=== PATIENT | male | born 1950 | race African-American/Black ===

== ENCOUNTER 2019-01-28 20:49 | Inpatient (IN) | payer MEDICARE ==
[~2019-01-28] VITALS: Ht 182.9 cm; Wt 82.0 kg
[2019-01-28] MEDS ORDERED: FURO40TA5 PO (21:16)
[2019-01-28] MEDS ORDERED: CARV12.580 PO (21:16)
[2019-01-28] MEDS ORDERED: CALC667C PO (21:16)
[2019-01-28] MEDS ORDERED: FOLI1TAB15 PO (21:16)
[2019-01-28] MEDS ORDERED: OMEP-50 PO (21:16)
[2019-01-28] MEDS ORDERED: ATOR40TA71 PO (21:16)
[2019-01-28] MEDS ORDERED: NIFE60TA81 PO (21:16)
[2019-01-28] MEDS ORDERED: LOSA25TA44 PO (21:16)
[2019-01-28 21:45] LABS: BASOPHILS % (AUTO) 0.5 % (0.0-2.0); EOSINOPHILS % (AUTO) 1.1 % (1.0-6.0); LYMPHOCYTES # (AUTO) 0.6 K/uL (1.0-4.8); LYMPHOCYTES % (AUTO) 6.7 % (22.0-44.0); MEAN CORPUSCULAR HEMOGLOBIN 32.6 pg (26.0-34.0); MEAN CORPUSCULAR HGB CONC 33.6 G/dL (31.0-37.0); MEAN CORPUSCULAR VOLUME 97 fL (80-100); MONOCYTES # (AUTO) 0.6 K/uL (0.1-1.0); MONOCYTES % (AUTO) 7.3 % (2.0-9.0); NEUTROPHILS # (AUTO) 7.1 K/uL (1.8-7.7); NEUTROPHILS % (AUTO) 84.4 % (40.0-70.0); PLATELET COUNT (AUTO) 223 K/uL (150-450); RED BLOOD CELL COUNT(AUTO) 1.22 MIL/uL (4.50-5.90); RED CELL DISTRIBUTION WIDTH 16.2 % (11.5-14.5)
[2019-01-28 21:54] LABS: HEMATOCRIT 11.8 % (41-53)
[2019-01-28 22:07] LABS: ALBUMIN 2.1 g/dL (3.4-5.0); BILIRUBIN,TOTAL 0.4 mg/dL (0.1-1.0); CREATININE 4.55 mg/dL (0.60-1.30); POTASSIUM 4.5 mmol/L (3.5-5.1); TOTAL PROTEIN, SERUM 6.1 g/dL (6.4-8.2)
[2019-01-28 22:12] LABS: CALCIUM, TOTAL 11.6 mg/dL (8.8-10.5)
[2019-01-28 23:55] VITALS: BP 143/62
[2019-01-29] VITALS (13 sets, daily range): BP systolic 132–177; BP diastolic 66–90
[2019-01-29 04:33] LABS: BASOPHILS % (AUTO) 0.4 % (0.0-2.0); EOSINOPHILS % (AUTO) 1.4 % (1.0-6.0); LYMPHOCYTES # (AUTO) 0.4 K/uL (1.0-4.8); LYMPHOCYTES % (AUTO) 4.7 % (22.0-44.0); MEAN CORPUSCULAR HEMOGLOBIN 32.3 pg (26.0-34.0); MEAN CORPUSCULAR HGB CONC 34.4 G/dL (31.0-37.0); MEAN CORPUSCULAR VOLUME 94 fL (80-100); MONOCYTES # (AUTO) 0.7 K/uL (0.1-1.0); MONOCYTES % (AUTO) 8.8 % (2.0-9.0); NEUTROPHILS # (AUTO) 7.1 K/uL (1.8-7.7); NEUTROPHILS % (AUTO) 84.7 % (40.0-70.0); PLATELET COUNT (AUTO) 187 K/uL (150-450); RED CELL DISTRIBUTION WIDTH 15.5 % (11.5-14.5)
[2019-01-29 04:39] LABS: CALCIUM, TOTAL 11.5 mg/dL (8.8-10.5); CREATININE 4.8 mg/dL (0.60-1.30); POTASSIUM 4.7 mmol/L (3.5-5.1)
[2019-01-29 04:41] LABS: HEMATOCRIT 16.9 % (41-53); HEMOGLOBIN 5.8 g/dL (13.5-17.5)
[2019-01-29] MEDS ORDERED: ACETAMINOPHEN 325 MG TABLET PO PRN (08:45)
[2019-01-29] MEDS ORDERED: BISACODYL 10 MG RECTAL RECTAL SUPPOSITORY PR PRN (08:45)
[2019-01-29] MEDS ORDERED: HEPARIN SODIUM,PORCINE 5,000 UNITS/ML VIAL SQ SCH (09:00)
[2019-01-29] MEDS ORDERED: DEXTROSE 50%-WATER 25 GM/50 ML SYRINGE IVP PRN (09:00)
[2019-01-29] MEDS ORDERED: ASPIRIN 81 MG CHEWABLE TABLET PO SCH (09:00)
[2019-01-29 10:41] LABS: BASOPHILS % (AUTO) 0.7 % (0.0-2.0); EOSINOPHILS % (AUTO) 0.9 % (1.0-6.0); LYMPHOCYTES # (AUTO) 0.5 K/uL (1.0-4.8); LYMPHOCYTES % (AUTO) 4.9 % (22.0-44.0); MEAN CORPUSCULAR HEMOGLOBIN 31.6 pg (26.0-34.0); MEAN CORPUSCULAR HGB CONC 33.5 G/dL (31.0-37.0); MEAN CORPUSCULAR VOLUME 94 fL (80-100); MONOCYTES # (AUTO) 0.7 K/uL (0.1-1.0); MONOCYTES % (AUTO) 7.5 % (2.0-9.0); NEUTROPHILS # (AUTO) 8.4 K/uL (1.8-7.7); PLATELET COUNT (AUTO) 197 K/uL (150-450); RED BLOOD CELL COUNT(AUTO) 1.91 MIL/uL (4.50-5.90); RED CELL DISTRIBUTION WIDTH 15.6 % (11.5-14.5)
[2019-01-29] MEDS: FAMOTIDINE 20 MG TABLET PO SCH (11:16)
[2019-01-29] MEDS: VITAMIN B COMP/VIT C/FOLIC ACID CAPSULE PO SCH (11:17)
[2019-01-29] MEDS: DOCUSATE SODIUM 100 MG CAPSULE PO SCH ×2 (11:17→21:19)
[2019-01-29] MEDS ORDERED: LIDOCAINE/PF 1% 2 ML VIAL INJ ONE (12:00)
[2019-01-29 13:00] LABS: GLUCOMETER DEV NAME(LOC) 4E.2; GLUCOSE,POINT OF CARE 138 MG/DL (70-110)
[2019-01-29] MEDS ORDERED: SODIUM CHLORIDE 0.9% 1,000 ML IV ONE (14:53)
[2019-01-29] MEDS ORDERED: VANCOMYCIN HCL 1 GM/D5% WATER 200 ML IV ONE (17:00)
[2019-01-29] MEDS ORDERED: SODIUM CHLORIDE 0.9% 500 ML IV ONE (20:36)
[2019-01-29] MEDS: INSULIN LISPRO 100 UNITS/ML SQ PRN (22:43)
[2019-01-29 23:40] LABS: GLUCOMETER DEV NAME(LOC) 4E.2; GLUCOSE,POINT OF CARE 143 MG/DL (70-110)
[2019-01-30 05:02] VITALS: BP 164/81
[2019-01-30 05:09] VITALS: BP 153/77
[2019-01-30 06:16] LABS: BASOPHILS % (AUTO) 0.3 % (0.0-2.0); EOSINOPHILS % (AUTO) 1.2 % (1.0-6.0); HEMATOCRIT 21.9 % (41-53); HEMOGLOBIN 7.3 g/dL (13.5-17.5); LYMPHOCYTES # (AUTO) 0.4 K/uL (1.0-4.8); MEAN CORPUSCULAR HEMOGLOBIN 31.2 pg (26.0-34.0); MEAN CORPUSCULAR HGB CONC 33.5 G/dL (31.0-37.0); MEAN CORPUSCULAR VOLUME 93 fL (80-100); MONOCYTES # (AUTO) 0.7 K/uL (0.1-1.0); MONOCYTES % (AUTO) 7.2 % (2.0-9.0); NEUTROPHILS # (AUTO) 8.3 K/uL (1.8-7.7); PLATELET COUNT (AUTO) 166 K/uL (150-450); RED BLOOD CELL COUNT(AUTO) 2.35 MIL/uL (4.50-5.90); RED CELL DISTRIBUTION WIDTH 15.3 % (11.5-14.5)
[2019-01-30 06:44] LABS: CREATININE 4.1 mg/dL (0.60-1.30); NEUTROPHILS % (AUTO) 87.3 % (40.0-70.0); POTASSIUM 4.4 mmol/L (3.5-5.1); VANCOMYCIN,RANDOM 27.3 mcg/mL (25.0-50.0)
[2019-01-30 06:51] LABS: GLUCOMETER DEV NAME(LOC) 4E.2; GLUCOSE,POINT OF CARE 73 MG/DL (70-110)
[2019-01-30] MEDS: DOCUSATE SODIUM 100 MG CAPSULE PO SCH ×2 (07:59→20:04)
[2019-01-30] MEDS: FAMOTIDINE 20 MG TABLET PO SCH (08:00)
[2019-01-30] MEDS ORDERED: VANCOMYCIN HCL 1 GM/D5% WATER 200 ML IV PRN (08:00)
[2019-01-30] MEDS: VITAMIN B COMP/VIT C/FOLIC ACID CAPSULE PO SCH (08:00)
[2019-01-30 08:05] VITALS: BP 149/76
[2019-01-30] MEDS ORDERED: DENOSUMAB SQ ONE (09:00)
[2019-01-30 11:55] VITALS: BP 151/84
[2019-01-30] MEDS ORDERED: SODIUM CHLORIDE 0.9% 100 ML ONE (12:24)
[2019-01-30] MEDS ORDERED: IOVERSOL 320 MG/ML 100 ML VIAL ONE (12:24)
[2019-01-30 14:06] LABS: GLUCOMETER DEV NAME(LOC) 4E.2; GLUCOSE,POINT OF CARE 124 MG/DL (70-110)
[2019-01-30] MEDS: INSULIN LISPRO 100 UNITS/ML SQ PRN (20:11)
[2019-01-30 20:12] VITALS: BP 159/86
[2019-01-30 20:56] LABS: GLUCOMETER DEV NAME(LOC) 4E.2; GLUCOSE,POINT OF CARE 155 MG/DL (70-110)
[2019-01-30 20:56] LABS: GLUCOMETER DEV NAME(LOC) 4E.2; GLUCOSE,POINT OF CARE 128 MG/DL (70-110)
[2019-01-30 23:15] VITALS: BP 139/58
[2019-01-31 03:57] VITALS: BP 148/73
[2019-01-31 06:40] LABS: GLUCOMETER DEV NAME(LOC) 4E.2; GLUCOSE,POINT OF CARE 99 MG/DL (70-110)
[2019-01-31 07:25] VITALS: BP 161/79
[2019-01-31] MEDS: DOCUSATE SODIUM 100 MG CAPSULE PO SCH ×2 (08:31→20:15)
[2019-01-31] MEDS: FAMOTIDINE 20 MG TABLET PO SCH (08:31)
[2019-01-31] MEDS: VITAMIN B COMP/VIT C/FOLIC ACID CAPSULE PO SCH (08:31)
[2019-01-31] MEDS ORDERED: SODIUM CHLORIDE 0.9% 2,000 ML IV ONE (09:41)
[2019-01-31 15:20] VITALS: BP 138/59
[2019-01-31] MEDS: ATORVASTATIN CALCIUM 40 MG TABLET PO SCH (15:20)
[2019-01-31] MEDS: CALCIUM ACETATE 667 MG CAPSULE PO SCH (17:36)
[2019-01-31] MEDS: HYDROCODONE/ACETAMINOPHEN 5-325 MG TABLET PO PRN (17:37)
[2019-01-31] MEDS: INSULIN LISPRO 100 UNITS/ML SQ PRN (17:42)
[2019-01-31 19:45] VITALS: BP 175/99
[2019-01-31 20:05] LABS: GLUCOMETER DEV NAME(LOC) 4E.2; GLUCOSE,POINT OF CARE 141 MG/DL (70-110)
[2019-01-31] MEDS: CARVEDILOL 12.5 MG TABLET PO SCH (20:15)
[2019-01-31 21:31] LABS: GLUCOMETER DEV NAME(LOC) 4E.2; GLUCOSE,POINT OF CARE 111 MG/DL (70-110)
[2019-01-31 23:40] VITALS: BP 175/82
[2019-02-01] VITALS (15 sets, daily range): BP systolic 140–169; BP diastolic 58–86
[2019-02-01] MEDS ORDERED: ONDANSETRON HCL 4 MG/2 ML VIAL IVP PRN (03:50)
[2019-02-01 06:43] LABS: BASOPHILS % (AUTO) 0.4 % (0.0-2.0); EOSINOPHILS % (AUTO) 2.9 % (1.0-6.0); LYMPHOCYTES # (AUTO) 0.3 K/uL (1.0-4.8); MEAN CORPUSCULAR HEMOGLOBIN 32.1 pg (26.0-34.0); MEAN CORPUSCULAR VOLUME 94 fL (80-100); MONOCYTES # (AUTO) 0.7 K/uL (0.1-1.0); NEUTROPHILS # (AUTO) 7.4 K/uL (1.8-7.7); NEUTROPHILS % (AUTO) 84.7 % (40.0-70.0); PLATELET COUNT (AUTO) 141 K/uL (150-450); RED BLOOD CELL COUNT(AUTO) 2.05 MIL/uL (4.50-5.90); RED CELL DISTRIBUTION WIDTH 15.1 % (11.5-14.5)
[2019-02-01 06:44] LABS: CALCIUM, TOTAL 9.9 mg/dL (8.8-10.5); CREATININE 3.84 mg/dL (0.60-1.30); POTASSIUM 4.1 mmol/L (3.5-5.1)
[2019-02-01 06:50] LABS: HEMOGLOBIN 6.6 g/dL (13.5-17.5)
[2019-02-01 06:51] LABS: HEMATOCRIT 19.4 % (41-53)
[2019-02-01] MEDS: ASPIRIN 81 MG CHEWABLE TABLET PO SCH (07:52)
[2019-02-01] MEDS: ATORVASTATIN CALCIUM 40 MG TABLET PO SCH (07:52)
[2019-02-01] MEDS: VITAMIN B COMP/VIT C/FOLIC ACID CAPSULE PO SCH (07:52)
[2019-02-01] MEDS: CALCIUM ACETATE 667 MG CAPSULE PO SCH ×3 (07:52→17:13)
[2019-02-01] MEDS: CARVEDILOL 12.5 MG TABLET PO SCH ×2 (07:53→20:00)
[2019-02-01] MEDS: DOCUSATE SODIUM 100 MG CAPSULE PO SCH ×2 (07:53→20:00)
[2019-02-01] MEDS: HYDROCODONE/ACETAMINOPHEN 5-325 MG TABLET PO PRN ×3 (07:53→20:00)
[2019-02-01] MEDS: FAMOTIDINE 20 MG TABLET PO SCH (07:53)
[2019-02-01] MEDS ORDERED: VANCOMYCIN HCL 1 GM/D5% WATER 200 ML IV ONE (10:00)
[2019-02-01 11:51] LABS: GLUCOMETER DEV NAME(LOC) 4E.2; GLUCOSE,POINT OF CARE 136 MG/DL (70-110)
[2019-02-01 15:05] LABS: HEMATOCRIT 22.9 % (41-53); HEMOGLOBIN 7.7 g/dL (13.5-17.5)
[2019-02-01] MEDS: INSULIN LISPRO 100 UNITS/ML SQ PRN (17:13)
[2019-02-01 17:36] LABS: GLUCOMETER DEV NAME(LOC) 4E.2; GLUCOSE,POINT OF CARE 156 MG/DL (70-110)
[2019-02-02] VITALS (13 sets, daily range): BP systolic 145–181; BP diastolic 62–89
[2019-02-02 00:11] LABS: GLUCOMETER DEV NAME(LOC) 4E.2; GLUCOSE,POINT OF CARE 99 MG/DL (70-110)
[2019-02-02] MEDS: HYDROCODONE/ACETAMINOPHEN 5-325 MG TABLET PO PRN ×3 (01:46→17:55)
[2019-02-02 05:38] LABS: ALBUMIN 1.7 g/dL (3.4-5.0); BILIRUBIN,TOTAL 0.6 mg/dL (0.1-1.0); CALCIUM, TOTAL 9.9 mg/dL (8.8-10.5); CREATININE 4.95 mg/dL (0.60-1.30); POTASSIUM 4.4 mmol/L (3.5-5.1); TOTAL PROTEIN, SERUM 5.3 g/dL (6.4-8.2)
[2019-02-02 06:15] LABS: BASOPHILS % (AUTO) 0.4 % (0.0-2.0); EOSINOPHILS % (AUTO) 2.9 % (1.0-6.0); LYMPHOCYTES # (AUTO) 0.4 K/uL (1.0-4.8); LYMPHOCYTES % (AUTO) 4.4 % (22.0-44.0); MEAN CORPUSCULAR HEMOGLOBIN 30.9 pg (26.0-34.0); MEAN CORPUSCULAR HGB CONC 33.1 G/dL (31.0-37.0); MEAN CORPUSCULAR VOLUME 93 fL (80-100); MONOCYTES # (AUTO) 0.8 K/uL (0.1-1.0); MONOCYTES % (AUTO) 8.3 % (2.0-9.0); NEUTROPHILS # (AUTO) 7.6 K/uL (1.8-7.7); PLATELET COUNT (AUTO) 139 K/uL (150-450); RED BLOOD CELL COUNT(AUTO) 2.19 MIL/uL (4.50-5.90); RED CELL DISTRIBUTION WIDTH 15.4 % (11.5-14.5)
[2019-02-02 06:30] LABS: HEMATOCRIT 20.4 % (41-53); HEMOGLOBIN 6.8 g/dL (13.5-17.5)
[2019-02-02 06:31] LABS: GLUCOMETER DEV NAME(LOC) 4E.2; GLUCOSE,POINT OF CARE 110 MG/DL (70-110)
[2019-02-02] MEDS: CARVEDILOL 12.5 MG TABLET PO SCH ×2 (07:51→19:39)
[2019-02-02] MEDS: CALCIUM ACETATE 667 MG CAPSULE PO SCH ×3 (07:51→17:55)
[2019-02-02] MEDS: VITAMIN B COMP/VIT C/FOLIC ACID CAPSULE PO SCH (07:51)
[2019-02-02] MEDS: ATORVASTATIN CALCIUM 40 MG TABLET PO SCH (07:51)
[2019-02-02] MEDS: FAMOTIDINE 20 MG TABLET PO SCH (07:51)
[2019-02-02] MEDS: ASPIRIN 81 MG CHEWABLE TABLET PO SCH (07:51)
[2019-02-02] MEDS: DOCUSATE SODIUM 100 MG CAPSULE PO SCH ×2 (07:52→19:39)
[2019-02-02] MEDS ORDERED: VANCOMYCIN HCL 1 GM/D5% WATER 200 ML IV PRN (10:45)
[2019-02-02 11:36] LABS: GLUCOMETER DEV NAME(LOC) 4E.2; GLUCOSE,POINT OF CARE 134 MG/DL (70-110)
[2019-02-02] MEDS: SOD FERRIC GLUC COMPLX/SUCROSE 125 MG in SODIUM CHLORIDE 0.9% 100 ML IV SCH (12:12)
[2019-02-02 12:23] LABS: HEMATOCRIT 24.7 % (41-53); HEMOGLOBIN 8.3 g/dL (13.5-17.5)
[2019-02-02 17:31] LABS: GLUCOMETER DEV NAME(LOC) 4E.2; GLUCOSE,POINT OF CARE 129 MG/DL (70-110)
[2019-02-02 20:35] LABS: GLUCOMETER DEV NAME(LOC) 4E.2; GLUCOSE,POINT OF CARE 129 MG/DL (70-110)
[2019-02-03 05:14] VITALS: BP 160/76
[2019-02-03 05:35] LABS: GLUCOMETER DEV NAME(LOC) 4E.2; GLUCOSE,POINT OF CARE 115 MG/DL (70-110)
[2019-02-03 05:53] LABS: BASOPHILS % (AUTO) 0.3 % (0.0-2.0); EOSINOPHILS % (AUTO) 2.8 % (1.0-6.0); HEMATOCRIT 22.2 % (41-53); HEMOGLOBIN 7.4 g/dL (13.5-17.5); LYMPHOCYTES # (AUTO) 0.3 K/uL (1.0-4.8); LYMPHOCYTES % (AUTO) 3.1 % (22.0-44.0); MEAN CORPUSCULAR HEMOGLOBIN 31.6 pg (26.0-34.0); MEAN CORPUSCULAR HGB CONC 33.5 G/dL (31.0-37.0); MEAN CORPUSCULAR VOLUME 94 fL (80-100); MONOCYTES # (AUTO) 0.7 K/uL (0.1-1.0); MONOCYTES % (AUTO) 7.6 % (2.0-9.0); NEUTROPHILS # (AUTO) 8.3 K/uL (1.8-7.7); PLATELET COUNT (AUTO) 121 K/uL (150-450); RED BLOOD CELL COUNT(AUTO) 2.36 MIL/uL (4.50-5.90); RED CELL DISTRIBUTION WIDTH 15.1 % (11.5-14.5)
[2019-02-03 05:56] LABS: NEUTROPHILS % (AUTO) 86.2 % (40.0-70.0)
[2019-02-03] MEDS: CALCIUM ACETATE 667 MG CAPSULE PO SCH ×3 (08:02→17:56)
[2019-02-03] MEDS: FAMOTIDINE 20 MG TABLET PO SCH (08:03)
[2019-02-03] MEDS: ATORVASTATIN CALCIUM 40 MG TABLET PO SCH (08:03)
[2019-02-03] MEDS: ASPIRIN 81 MG CHEWABLE TABLET PO SCH (08:03)
[2019-02-03] MEDS: VITAMIN B COMP/VIT C/FOLIC ACID CAPSULE PO SCH (08:03)
[2019-02-03] MEDS: DOCUSATE SODIUM 100 MG CAPSULE PO SCH ×3 (08:03→21:00)
[2019-02-03 08:18] VITALS: BP 170/85
[2019-02-03] MEDS: CARVEDILOL 12.5 MG TABLET PO SCH ×2 (08:52→20:19)
[2019-02-03] MEDS ORDERED: SODIUM CHLORIDE 0.9% 2,000 ML IV ONE (10:39)
[2019-02-03 12:20] LABS: GLUCOMETER DEV NAME(LOC) 4E.2; GLUCOSE,POINT OF CARE 105 MG/DL (70-110)
[2019-02-03] MEDS: INSULIN LISPRO 100 UNITS/ML SQ PRN ×2 (13:28→17:55)
[2019-02-03 15:31] VITALS: BP 155/87
[2019-02-03] MEDS: SOD FERRIC GLUC COMPLX/SUCROSE 125 MG in SODIUM CHLORIDE 0.9% 100 ML IV SCH (16:27)
[2019-02-03] MEDS ORDERED: LIDOCAINE/PF 1% 2 ML VIAL IM ONE (17:24)
[2019-02-03 19:15] VITALS: BP 181/79
[2019-02-03 19:45] LABS: GLUCOMETER DEV NAME(LOC) 4E.2; GLUCOSE,POINT OF CARE 134 MG/DL (70-110)
[2019-02-03 21:10] LABS: GLUCOMETER DEV NAME(LOC) 4E.2; GLUCOSE,POINT OF CARE 135 MG/DL (70-110)
[2019-02-03 23:30] VITALS: BP 158/78
[2019-02-04 04:00] VITALS: BP 152/80
[2019-02-04 05:40] LABS: GLUCOMETER DEV NAME(LOC) 4E.2; GLUCOSE,POINT OF CARE 102 MG/DL (70-110)
[2019-02-04 07:25] VITALS: BP 135/70
[2019-02-04] MEDS: CALCIUM ACETATE 667 MG CAPSULE PO SCH ×3 (08:00→17:58)
[2019-02-04] MEDS: CARVEDILOL 12.5 MG TABLET PO SCH ×3 (09:00→23:42)
[2019-02-04] MEDS: DOCUSATE SODIUM 100 MG CAPSULE PO SCH ×2 (09:00→23:42)
[2019-02-04] MEDS: SOD FERRIC GLUC COMPLX/SUCROSE 125 MG in SODIUM CHLORIDE 0.9% 100 ML IV SCH (10:18)
[2019-02-04 11:21] VITALS: BP 152/75
[2019-02-04] MEDS ORDERED: SODIUM CHLORIDE 0.9% 1,000 ML IV ONE (11:33)
[2019-02-04 15:23] LABS: INR 1.2 (0.9-1.1); PROTHROMBIN TIME 12.3 SEC (9.4-11.6)
[2019-02-04 15:24] LABS: % IRON SATURATION 102.6 % (30-44)
[2019-02-04 15:55] VITALS: BP 161/107
[2019-02-04] MEDS: VITAMIN B COMP/VIT C/FOLIC ACID CAPSULE PO SCH (16:01)
[2019-02-04] MEDS: ASPIRIN 81 MG CHEWABLE TABLET PO SCH (16:01)
[2019-02-04] MEDS: NIFEdipine 30 MG ER TABLET PO SCH (16:01)
[2019-02-04] MEDS: ATORVASTATIN CALCIUM 40 MG TABLET PO SCH (16:01)
[2019-02-04] MEDS: FAMOTIDINE 20 MG TABLET PO SCH (16:01)
[2019-02-04 18:25] VITALS: BP 171/88
[2019-02-04] MEDS ORDERED: CloNIDine HCL 0.1 MG TABLET PO ONE (18:45)
[2019-02-04 19:05] LABS: GLUCOMETER DEV NAME(LOC) 4E.2; GLUCOSE,POINT OF CARE 70 MG/DL (70-110)
[2019-02-04 19:05] LABS: GLUCOMETER DEV NAME(LOC) 4E.2; GLUCOSE,POINT OF CARE 105 MG/DL (70-110)
[2019-02-04 19:41] VITALS: BP 164/76
[2019-02-04] MEDS: HYDROCODONE/ACETAMINOPHEN 5-325 MG TABLET PO PRN (23:42)
[2019-02-05] VITALS (14 sets, daily range): BP systolic 110–152; BP diastolic 48–82
[2019-02-05] LABS: GLUCOMETER DEV NAME(LOC) 4E.2; GLUCOSE,POINT OF CARE 138 MG/DL (70-110)
[2019-02-05 05:29] LABS: BASOPHILS % (AUTO) 0.5 % (0.0-2.0); EOSINOPHILS % (AUTO) 2.5 % (1.0-6.0); HEMATOCRIT 21.8 % (41-53); HEMOGLOBIN 7.2 g/dL (13.5-17.5); LYMPHOCYTES # (AUTO) 0.4 K/uL (1.0-4.8); LYMPHOCYTES % (AUTO) 4.4 % (22.0-44.0); MEAN CORPUSCULAR HGB CONC 33.1 G/dL (31.0-37.0); MEAN CORPUSCULAR VOLUME 94 fL (80-100); MONOCYTES # (AUTO) 0.8 K/uL (0.1-1.0); NEUTROPHILS # (AUTO) 7.9 K/uL (1.8-7.7); NEUTROPHILS % (AUTO) 83.6 % (40.0-70.0); PLATELET COUNT (AUTO) 140 K/uL (150-450); RED BLOOD CELL COUNT(AUTO) 2.33 MIL/uL (4.50-5.90); RED CELL DISTRIBUTION WIDTH 14.8 % (11.5-14.5)
[2019-02-05] MEDS ORDERED: PROPOFOL 1% 20 ML VIAL IVP ONE (05:42)
[2019-02-05 05:52] LABS: CALCIUM, TOTAL 9.4 mg/dL (8.8-10.5); CREATININE 5.62 mg/dL (0.60-1.30); POTASSIUM 4.6 mmol/L (3.5-5.1)
[2019-02-05] MEDS: INSULIN LISPRO 100 UNITS/ML SQ PRN ×2 (06:04→18:17)
[2019-02-05 06:16] LABS: GLUCOMETER DEV NAME(LOC) 4E.2; GLUCOSE,POINT OF CARE 145 MG/DL (70-110)
[2019-02-05] MEDS: CALCIUM ACETATE 667 MG CAPSULE PO SCH ×3 (08:00→18:13)
[2019-02-05] MEDS ORDERED: SODIUM CHLORIDE 0.9% 2,000 ML IV ONE (08:26)
[2019-02-05] MEDS ORDERED: VANCOMYCIN HCL 1 GM/D5% WATER 200 ML IV ONE (09:00)
[2019-02-05] MEDS: DOCUSATE SODIUM 100 MG CAPSULE PO SCH ×2 (09:00→20:15)
[2019-02-05] MEDS: CARVEDILOL 12.5 MG TABLET PO SCH ×2 (09:00→20:14)
[2019-02-05] MEDS: ATORVASTATIN CALCIUM 40 MG TABLET PO SCH (12:38)
[2019-02-05] MEDS: FAMOTIDINE 20 MG TABLET PO SCH (12:38)
[2019-02-05] MEDS: NIFEdipine 30 MG ER TABLET PO SCH (12:38)
[2019-02-05] MEDS: VITAMIN B COMP/VIT C/FOLIC ACID CAPSULE PO SCH (12:38)
[2019-02-05] MEDS: ASPIRIN 81 MG CHEWABLE TABLET PO SCH (12:39)
[2019-02-05] MEDS ORDERED: PEG 3350/NA SULF,BICARB,CL/KCL 4000 ML SOLUTION PO ONE (13:00)
[2019-02-05] MEDS ORDERED: SODIUM CHLORIDE 0.9% 1,000 ML IV ONE (14:59)
[2019-02-05] MEDS: SOD FERRIC GLUC COMPLX/SUCROSE 125 MG in SODIUM CHLORIDE 0.9% 100 ML IV SCH (15:12)
[2019-02-06 04:40] VITALS: BP 137/74
[2019-02-06 05:58] LABS: BASOPHILS % (AUTO) 0.3 % (0.0-2.0); EOSINOPHILS % (AUTO) 2.2 % (1.0-6.0); HEMATOCRIT 23.1 % (41-53); LYMPHOCYTES # (AUTO) 0.4 K/uL (1.0-4.8); LYMPHOCYTES % (AUTO) 4.7 % (22.0-44.0); MEAN CORPUSCULAR HEMOGLOBIN 31.8 pg (26.0-34.0); MEAN CORPUSCULAR HGB CONC 34.4 G/dL (31.0-37.0); MEAN CORPUSCULAR VOLUME 93 fL (80-100); MONOCYTES # (AUTO) 0.8 K/uL (0.1-1.0); MONOCYTES % (AUTO) 9.2 % (2.0-9.0); NEUTROPHILS # (AUTO) 7.7 K/uL (1.8-7.7); NEUTROPHILS % (AUTO) 83.6 % (40.0-70.0); PLATELET COUNT (AUTO) 136 K/uL (150-450); RED CELL DISTRIBUTION WIDTH 14.8 % (11.5-14.5)
[2019-02-06 06:07] LABS: CALCIUM, TOTAL 8.9 mg/dL (8.8-10.5); CREATININE 4.01 mg/dL (0.60-1.30); POTASSIUM 4.1 mmol/L (3.5-5.1)
[2019-02-06] MEDS: INSULIN LISPRO 100 UNITS/ML SQ PRN ×2 (06:28→17:16)
[2019-02-06 08:07] VITALS: BP 135/74
[2019-02-06] MEDS: VITAMIN B COMP/VIT C/FOLIC ACID CAPSULE PO SCH (08:11)
[2019-02-06] MEDS: ASPIRIN 81 MG CHEWABLE TABLET PO SCH (08:11)
[2019-02-06] MEDS: FAMOTIDINE 20 MG TABLET PO SCH (08:11)
[2019-02-06] MEDS: DOCUSATE SODIUM 100 MG CAPSULE PO SCH (08:11)
[2019-02-06] MEDS: ATORVASTATIN CALCIUM 40 MG TABLET PO SCH (08:11)
[2019-02-06] MEDS: NIFEdipine 30 MG ER TABLET PO SCH (08:12)
[2019-02-06] MEDS: CARVEDILOL 12.5 MG TABLET PO SCH (08:12)
[2019-02-06] MEDS: CALCIUM ACETATE 667 MG CAPSULE PO SCH ×3 (08:12→17:15)
[2019-02-06] MEDS: SOD FERRIC GLUC COMPLX/SUCROSE 125 MG in SODIUM CHLORIDE 0.9% 100 ML IV SCH (11:16)
[2019-02-06 12:00] VITALS: BP 132/77
[2019-02-06] MEDS ORDERED: FOLI0.8T2 PO (14:30)
[2019-02-06] MEDS ORDERED: FAMO20 PO (14:31)
[2019-02-06] MEDS ORDERED: PNEUMOCOCCAL VACCINE POLYVALENT 0.5 ML VIAL [PPSV23] IM ONE (18:15)
== END 2019-02-06 18:45 | DRG 377 ==
LOC: EMS 20:50 → 4E 01-29 06:00
PROVIDERS: ADMIT Internal Medicine; ATTEND Internal Medicine
PROC: 30233N1 Transfusion of Nonautologous Red Blood Cells into Peripheral Vein, Percutaneous Approach (ICD-10-PCS; 2019-01-29)
PROC: 5A1D70Z Performance of Urinary Filtration, Intermittent, Less than 6 Hours Per Day (ICD-10-PCS; 2019-01-29)
PROC: 5A1D70Z Performance of Urinary Filtration, Intermittent, Less than 6 Hours Per Day (ICD-10-PCS; 2019-01-31)
PROC: 5A1D70Z Performance of Urinary Filtration, Intermittent, Less than 6 Hours Per Day (ICD-10-PCS; 2019-02-03)
PROC: 0DB68ZX Excision of Stomach, Via Natural or Artificial Opening Endoscopic, Diagnostic (ICD-10-PCS; principal; 2019-02-04 14:30)
PROC: 5A1D70Z Performance of Urinary Filtration, Intermittent, Less than 6 Hours Per Day (ICD-10-PCS; 2019-02-05)
DX: K92.2 Gastrointestinal hemorrhage, unspecified (principal); N18.6 End stage renal disease; E43 Unspecified severe protein-calorie malnutrition; I12.0 Hypertensive chronic kidney disease with stage 5 chronic kidney disease or end stage renal disease; K31.7 Polyp of stomach and duodenum; D64.89 Other specified anemias; K22.70 Barrett's esophagus without dysplasia; R60.0 Localized edema; J44.9 Chronic obstructive pulmonary disease, unspecified; E83.51 Hypocalcemia; R19.00 Intra-abdominal and pelvic swelling, mass and lump, unspecified site; E11.21 Type 2 diabetes mellitus with diabetic nephropathy; G89.29 Other chronic pain; D63.1 Anemia in chronic kidney disease; F17.210 Nicotine dependence, cigarettes, uncomplicated; Z99.2 Dependence on renal dialysis; I25.2 Old myocardial infarction; Z28.21 Immunization not carried out because of patient refusal; Z68.24 Body mass index [BMI] 24.0-24.9, adult
CPT/HCPCS: 72100; 72131; 74178; 82105; 82270; 82271; 82378; 82397; 82728; 83540; 83550; 83970; 85014; 85018; 86850; 86900; 86901; 86920; 87081; 87340; 88305; 88312; 88313; 88342; 93005; 93971; 97110; 97162; 97166; 97530; 97535; G0378; J1644; J2405; J2704; J2916; J3370; J3490; J7030; J7040; J7050; P9016

== ENCOUNTER 2019-03-14 22:52 | Inpatient (IN) | payer MEDICARE ==
[~2019-03-14] VITALS: Ht 182.9 cm; Wt 87.5 kg
[~2019-03-14 22:52] MED LIST: ASPI-556 PO; ATOR40TA71 PO; CALC667C PO; CARV12.580 PO; FAMO20 PO; FOLI0.8T2 PO; LOSA25TA44 PO; NIFE30TA5 PO
[2019-03-14] MEDS ORDERED: SEVE800 PO (23:46)
[2019-03-14] MEDS ORDERED: HYDR-4061 PO (23:46)
[2019-03-14] MEDS ORDERED: EPOE10008 SQ (23:46)
[2019-03-14] MEDS ORDERED: FOLI1CAP16 PO (23:46)
[2019-03-14 23:56] LABS: GLUCOSE,POINT OF CARE 114 MG/DL (70-110)
[2019-03-15] VITALS (24 sets, daily range): BP systolic 120–165; BP diastolic 67–103
[2019-03-15] MEDS ORDERED: PANTOPRAZOLE SODIUM 40 MG/VIAL IVP ONE
[2019-03-15 00:04] LABS: BASOPHILS % (AUTO) 1.2 % (0.0-2.0); EOSINOPHILS % (AUTO) 2.2 % (1.0-6.0); LYMPHOCYTES # (AUTO) 0.4 K/uL (1.0-4.8); LYMPHOCYTES % (AUTO) 5.2 % (22.0-44.0); MEAN CORPUSCULAR HEMOGLOBIN 29.9 pg (26.0-34.0); MEAN CORPUSCULAR HGB CONC 33.4 G/dL (31.0-37.0); MEAN CORPUSCULAR VOLUME 90 fL (80-100); MONOCYTES # (AUTO) 0.4 K/uL (0.1-1.0); MONOCYTES % (AUTO) 5.5 % (2.0-9.0); NEUTROPHILS # (AUTO) 6.7 K/uL (1.8-7.7); PLATELET COUNT (AUTO) 206 K/uL (150-450); RED BLOOD CELL COUNT(AUTO) 1.28 MIL/uL (4.50-5.90); RED CELL DISTRIBUTION WIDTH 19.1 % (11.5-14.5)
[2019-03-15 00:13] LABS: CALCIUM, TOTAL 8.8 mg/dL (8.8-10.5); CREATININE 3.38 mg/dL (0.60-1.30); POTASSIUM 4.2 mmol/L (3.5-5.1)
[2019-03-15 00:15] LABS: INR 1.1 (0.9-1.1); PROTHROMBIN TIME 11.7 SEC (9.4-11.6)
[2019-03-15 00:19] LABS: ALBUMIN 1.7 g/dL (3.4-5.0); BILIRUBIN,TOTAL 0.3 mg/dL (0.1-1.0); TOTAL PROTEIN, SERUM 5.3 g/dL (6.4-8.2)
[2019-03-15 00:34] LABS: HEMATOCRIT 11.5 % (41-53); HEMOGLOBIN 3.8 g/dL (13.5-17.5); NEUTROPHILS % (AUTO) 85.9 % (40.0-70.0)
[2019-03-15] MEDS ORDERED: ACETAMINOPHEN 325 MG TABLET PO PRN ×2 (01:45→10:15)
[2019-03-15] MEDS ORDERED: ACETAMINOPHEN 650 MG/ISO-OSM 65 ML IV ONE (01:45)
[2019-03-15] MEDS ORDERED: ONDANSETRON HCL 4 MG/2 ML VIAL IVP PRN (01:45)
[2019-03-15] MEDS ORDERED: 0.9% SODIUM CHLORIDE 10 ML SYRINGE IVP PRN (01:45)
[2019-03-15] MEDS ORDERED: PNEUMOCOCCAL VACCINE POLYVALENT 0.5 ML VIAL [PPSV23] IM ONE (06:15)
[2019-03-15] MEDS ORDERED: SODIUM CHLORIDE 0.9% 250 ML IV ONE (09:07)
[2019-03-15] MEDS ORDERED: BISACODYL 10 MG RECTAL RECTAL SUPPOSITORY PR PRN (10:15)
[2019-03-15] MEDS: PANTOPRAZOLE SODIUM 40 MG/VIAL IVP SCH ×2 (10:15→21:51)
[2019-03-15] MEDS ORDERED: DEXTROSE 50%-WATER 25 GM/50 ML SYRINGE IVP PRN (10:30)
[2019-03-15] MEDS ORDERED: DESMOPRESSIN ACETATE 24 MCG in SODIUM CHLORIDE 0.9% 50 ML IV ONE (13:00)
[2019-03-15] MEDS ORDERED: NIFE60TA71 PO (13:19)
[2019-03-15 13:53] LABS: BASOPHILS % (AUTO) 0.8 % (0.0-2.0); LYMPHOCYTES # (AUTO) 0.4 K/uL (1.0-4.8); LYMPHOCYTES % (AUTO) 5.2 % (22.0-44.0); MEAN CORPUSCULAR HEMOGLOBIN 29.6 pg (26.0-34.0); MEAN CORPUSCULAR HGB CONC 33.8 G/dL (31.0-37.0); MEAN CORPUSCULAR VOLUME 88 fL (80-100); MONOCYTES # (AUTO) 0.6 K/uL (0.1-1.0); MONOCYTES % (AUTO) 8.4 % (2.0-9.0); NEUTROPHILS # (AUTO) 5.9 K/uL (1.8-7.7); NEUTROPHILS % (AUTO) 82.6 % (40.0-70.0); PLATELET COUNT (AUTO) 209 K/uL (150-450); RED BLOOD CELL COUNT(AUTO) 2.08 MIL/uL (4.50-5.90); RED CELL DISTRIBUTION WIDTH 17.2 % (11.5-14.5)
[2019-03-15 13:56] LABS: HEMOGLOBIN 6.2 g/dL (13.5-17.5)
[2019-03-15 13:57] LABS: HEMATOCRIT 18.3 % (41-53)
[2019-03-15] MEDS ORDERED: SODIUM CHLORIDE 0.9% 2,000 ML IV ONE (14:59)
[2019-03-15 16:21] LABS: BASOPHILS % (AUTO) 0.9 % (0.0-2.0); EOSINOPHILS % (AUTO) 2.3 % (1.0-6.0); LYMPHOCYTES # (AUTO) 0.3 K/uL (1.0-4.8); LYMPHOCYTES % (AUTO) 4.4 % (22.0-44.0); MEAN CORPUSCULAR HEMOGLOBIN 29.8 pg (26.0-34.0); MEAN CORPUSCULAR HGB CONC 33.9 G/dL (31.0-37.0); MEAN CORPUSCULAR VOLUME 88 fL (80-100); MONOCYTES # (AUTO) 0.5 K/uL (0.1-1.0); MONOCYTES % (AUTO) 6.9 % (2.0-9.0); NEUTROPHILS # (AUTO) 6.6 K/uL (1.8-7.7); PLATELET COUNT (AUTO) 218 K/uL (150-450); RED BLOOD CELL COUNT(AUTO) 2.05 MIL/uL (4.50-5.90); RED CELL DISTRIBUTION WIDTH 16.8 % (11.5-14.5)
[2019-03-15 16:22] LABS: NEUTROPHILS % (AUTO) 85.5 % (40.0-70.0)
[2019-03-15 16:24] LABS: HEMOGLOBIN 6.1 g/dL (13.5-17.5)
[2019-03-15 16:39] LABS: PLATELET MORPHOLOGY COMMENT LARGE PLTS PRESENT
[2019-03-15 18:12] LABS: GLUCOMETER DEV NAME(LOC) 5N.1; GLUCOSE,POINT OF CARE 152 MG/DL (70-110)
[2019-03-15 20:11] LABS: GLUCOMETER DEV NAME(LOC) 5S.2A; GLUCOSE,POINT OF CARE 92 MG/DL (70-110)
[2019-03-15] MEDS: DOCUSATE SODIUM 100 MG CAPSULE PO SCH (21:00)
[2019-03-15 22:41] LABS: GLUCOMETER DEV NAME(LOC) 5N.1; GLUCOSE,POINT OF CARE 78 MG/DL (70-110)
[2019-03-16] VITALS (13 sets, daily range): BP systolic 126–165; BP diastolic 64–92
[2019-03-16 05:39] LABS: BASOPHILS % (AUTO) 0.7 % (0.0-2.0); EOSINOPHILS % (AUTO) 2.6 % (1.0-6.0); LYMPHOCYTES # (AUTO) 0.4 K/uL (1.0-4.8); LYMPHOCYTES % (AUTO) 4.9 % (22.0-44.0); MEAN CORPUSCULAR HEMOGLOBIN 30.2 pg (26.0-34.0); MEAN CORPUSCULAR HGB CONC 34.6 G/dL (31.0-37.0); MEAN CORPUSCULAR VOLUME 87 fL (80-100); MONOCYTES # (AUTO) 0.7 K/uL (0.1-1.0); MONOCYTES % (AUTO) 9.5 % (2.0-9.0); NEUTROPHILS # (AUTO) 6.3 K/uL (1.8-7.7); NEUTROPHILS % (AUTO) 82.3 % (40.0-70.0); PLATELET COUNT (AUTO) 195 K/uL (150-450); RED BLOOD CELL COUNT(AUTO) 2.26 MIL/uL (4.50-5.90); RED CELL DISTRIBUTION WIDTH 17.1 % (11.5-14.5)
[2019-03-16 05:49] LABS: CALCIUM, TOTAL 8.3 mg/dL (8.8-10.5); CREATININE 3.18 mg/dL (0.60-1.30); POTASSIUM 3.9 mmol/L (3.5-5.1)
[2019-03-16 06:10] LABS: HEMATOCRIT 19.8 % (41-53); HEMOGLOBIN 6.8 g/dL (13.5-17.5)
[2019-03-16 06:51] LABS: GLUCOMETER DEV NAME(LOC) 5N.1; GLUCOSE,POINT OF CARE 139 MG/DL (70-110)
[2019-03-16] MEDS: DOCUSATE SODIUM 100 MG CAPSULE PO SCH ×2 (08:06→20:45)
[2019-03-16] MEDS: PANTOPRAZOLE SODIUM 40 MG/VIAL IVP SCH ×2 (08:26→20:45)
[2019-03-16] MEDS ORDERED: EPOETIN ALFA 10,000 UNITS/ML VIAL SQ SCH (09:00)
[2019-03-16] MEDS ORDERED: SODIUM CHLORIDE 0.9% 250 ML IV ONE (09:52)
[2019-03-16] MEDS ORDERED: PROPOFOL 1% 20 ML VIAL IVP ONE (12:00)
[2019-03-16] MEDS ORDERED: LIDOCAINE/PF 2% 5 ML VIAL INJ ONE (12:00)
[2019-03-16] MEDS ORDERED: ONDANSETRON HCL 4 MG/2 ML VIAL IVP PRN (13:00)
[2019-03-16] MEDS ORDERED: SODIUM CHLORIDE 0.9% 1,000 ML IV ONE (13:44)
[2019-03-16 18:44] LABS: BASOPHILS % (AUTO) 0.3 % (0.0-2.0); HEMATOCRIT 22.9 % (41-53); HEMOGLOBIN 7.9 g/dL (13.5-17.5); LYMPHOCYTES # (AUTO) 0.4 K/uL (1.0-4.8); LYMPHOCYTES % (AUTO) 5.1 % (22.0-44.0); MEAN CORPUSCULAR HEMOGLOBIN 30.2 pg (26.0-34.0); MEAN CORPUSCULAR HGB CONC 34.6 G/dL (31.0-37.0); MEAN CORPUSCULAR VOLUME 87 fL (80-100); MONOCYTES # (AUTO) 0.7 K/uL (0.1-1.0); MONOCYTES % (AUTO) 9.6 % (2.0-9.0); NEUTROPHILS # (AUTO) 6.1 K/uL (1.8-7.7); PLATELET COUNT (AUTO) 190 K/uL (150-450); RED BLOOD CELL COUNT(AUTO) 2.63 MIL/uL (4.50-5.90); RED CELL DISTRIBUTION WIDTH 16.5 % (11.5-14.5)
[2019-03-17] VITALS (10 sets, daily range): BP systolic 124–186; BP diastolic 60–98
[2019-03-17 05:42] LABS: GLUCOMETER DEV NAME(LOC) 5N.2; GLUCOSE,POINT OF CARE 134 MG/DL (70-110)
[2019-03-17 05:42] LABS: GLUCOMETER DEV NAME(LOC) 5N.2; GLUCOSE,POINT OF CARE 138 MG/DL (70-110)
[2019-03-17 05:42] LABS: GLUCOMETER DEV NAME(LOC) 5N.2; GLUCOSE,POINT OF CARE 92 MG/DL (70-110)
[2019-03-17 05:42] LABS: GLUCOMETER DEV NAME(LOC) 5N.2; GLUCOSE,POINT OF CARE 132 MG/DL (70-110)
[2019-03-17] MEDS ORDERED: SODIUM CHLORIDE 0.9% 1,000 ML IV ONE (06:01)
[2019-03-17 06:33] LABS: BASOPHILS % (AUTO) 0.6 % (0.0-2.0); EOSINOPHILS % (AUTO) 2.9 % (1.0-6.0); LYMPHOCYTES # (AUTO) 0.3 K/uL (1.0-4.8); MEAN CORPUSCULAR HGB CONC 34.4 G/dL (31.0-37.0); MEAN CORPUSCULAR VOLUME 87 fL (80-100); MONOCYTES # (AUTO) 0.6 K/uL (0.1-1.0); MONOCYTES % (AUTO) 7.4 % (2.0-9.0); NEUTROPHILS # (AUTO) 6.9 K/uL (1.8-7.7); NEUTROPHILS % (AUTO) 85.1 % (40.0-70.0); PLATELET COUNT (AUTO) 178 K/uL (150-450); RED BLOOD CELL COUNT(AUTO) 2.32 MIL/uL (4.50-5.90); RED CELL DISTRIBUTION WIDTH 16.4 % (11.5-14.5)
[2019-03-17 06:51] LABS: CALCIUM, TOTAL 7.7 mg/dL (8.8-10.5); CHOL/HDL RATIO 2.7 (4.2-7.3); CREATININE 4.15 mg/dL (0.60-1.30); FREE T4 (FREE THYROXINE) 1.06 ng/dL (0.76-1.46); MAGNESIUM 1.5 mg/dL (1.80-2.40); POTASSIUM 4.3 mmol/L (3.5-5.1); THYROID STIMULATING HORMONE 8.66 uIU/mL (0.36-3.74)
[2019-03-17 07:04] LABS: HEMATOCRIT 20.3 % (41-53)
[2019-03-17 07:42] LABS: HEMOGLOBIN A1C 5.3 % (4.5-6.2)
[2019-03-17] MEDS ORDERED: SODIUM CHLORIDE 0.9% 2,000 ML IV ONE (08:51)
[2019-03-17] MEDS ORDERED: SODIUM CHLORIDE 0.9% 250 ML IV ONE (10:10)
[2019-03-17] MEDS: DOCUSATE SODIUM 100 MG CAPSULE PO SCH ×2 (13:21→20:11)
[2019-03-17] MEDS: PANTOPRAZOLE SODIUM 40 MG/VIAL IVP SCH ×2 (13:21→20:11)
[2019-03-17] MEDS: INSULIN LISPRO 100 UNITS/ML SQ PRN ×2 (13:23→20:20)
[2019-03-17 22:31] LABS: GLUCOMETER DEV NAME(LOC) 5N.2; GLUCOSE,POINT OF CARE 159 MG/DL (70-110)
[2019-03-18 05:14] VITALS: BP 134/90
[2019-03-18 06:48] LABS: BASOPHILS % (AUTO) 0.6 % (0.0-2.0); EOSINOPHILS % (AUTO) 2.5 % (1.0-6.0); HEMATOCRIT 22.5 % (41-53); HEMOGLOBIN 7.8 g/dL (13.5-17.5); LYMPHOCYTES # (AUTO) 0.4 K/uL (1.0-4.8); LYMPHOCYTES % (AUTO) 4.4 % (22.0-44.0); MEAN CORPUSCULAR HEMOGLOBIN 30.3 pg (26.0-34.0); MEAN CORPUSCULAR HGB CONC 34.8 G/dL (31.0-37.0); MEAN CORPUSCULAR VOLUME 87 fL (80-100); MONOCYTES # (AUTO) 0.7 K/uL (0.1-1.0); MONOCYTES % (AUTO) 8.1 % (2.0-9.0); NEUTROPHILS # (AUTO) 6.8 K/uL (1.8-7.7); NEUTROPHILS % (AUTO) 84.4 % (40.0-70.0); PLATELET COUNT (AUTO) 169 K/uL (150-450); RED BLOOD CELL COUNT(AUTO) 2.59 MIL/uL (4.50-5.90); RED CELL DISTRIBUTION WIDTH 16.1 % (11.5-14.5)
[2019-03-18 06:54] LABS: CALCIUM, TOTAL 7.3 mg/dL (8.8-10.5); CREATININE 3.54 mg/dL (0.60-1.30); POTASSIUM 3.8 mmol/L (3.5-5.1)
[2019-03-18 07:01] LABS: GLUCOMETER DEV NAME(LOC) 5N.2; GLUCOSE,POINT OF CARE 133 MG/DL (70-110)
[2019-03-18 07:01] LABS: GLUCOMETER DEV NAME(LOC) 5S.2A; GLUCOSE,POINT OF CARE 150 MG/DL (70-110)
[2019-03-18 07:01] LABS: GLUCOMETER DEV NAME(LOC) 5S.2A; GLUCOSE,POINT OF CARE 132 MG/DL (70-110)
[2019-03-18 08:26] VITALS: BP 138/61
[2019-03-18] MEDS: DOCUSATE SODIUM 100 MG CAPSULE PO SCH (08:27)
[2019-03-18] MEDS: PANTOPRAZOLE SODIUM 40 MG/VIAL IVP SCH (08:28)
[2019-03-18 11:39] VITALS: BP 142/65
[2019-03-18] MEDS: INSULIN LISPRO 100 UNITS/ML SQ PRN (12:54)
[2019-03-18] MEDS ORDERED: DSS100 PO (13:36)
[2019-03-18] MEDS ORDERED: PANT40TA PO (13:37)
[2019-03-18] MEDS ORDERED: ACET-2247 PO (13:38)
[2019-03-18] MEDS ORDERED: INSU100V SQ (13:39)
[2019-03-18] MEDS ORDERED: BISA10SU11 PR (13:39)
[2019-03-18] MEDS ORDERED: ONDA4 PO (13:40)
[2019-03-19 05:36] LABS: GLUCOMETER DEV NAME(LOC) 5N.2; GLUCOSE,POINT OF CARE 150 MG/DL (70-110)
== END 2019-03-18 14:55 | DRG 843 ==
LOC: EMS 22:54 → 5S 03-15 02:51
PROVIDERS: ADMIT Internal Medicine; ATTEND Internal Medicine Geriatric Medicine
PROC: 30233N1 Transfusion of Nonautologous Red Blood Cells into Peripheral Vein, Percutaneous Approach (ICD-10-PCS; principal; 2019-03-15)
PROC: 5A1D70Z Performance of Urinary Filtration, Intermittent, Less than 6 Hours Per Day (ICD-10-PCS; 2019-03-15)
PROC: 0DB28ZX Excision of Middle Esophagus, Via Natural or Artificial Opening Endoscopic, Diagnostic (ICD-10-PCS; 2019-03-16)
PROC: 5A1D70Z Performance of Urinary Filtration, Intermittent, Less than 6 Hours Per Day (ICD-10-PCS; 2019-03-17)
DX: C48.0 Malignant neoplasm of retroperitoneum (principal); K29.71 Gastritis, unspecified, with bleeding; N18.6 End stage renal disease; E43 Unspecified severe protein-calorie malnutrition; C49.9 Malignant neoplasm of connective and soft tissue, unspecified; I13.2 Hypertensive heart and chronic kidney disease with heart failure and with stage 5 chronic kidney disease, or end stage renal disease; D64.89 Other specified anemias; I25.10 Atherosclerotic heart disease of native coronary artery without angina pectoris; E11.22 Type 2 diabetes mellitus with diabetic chronic kidney disease; F17.210 Nicotine dependence, cigarettes, uncomplicated; N40.0 Benign prostatic hyperplasia without lower urinary tract symptoms; I50.9 Heart failure, unspecified; Z66 Do not resuscitate; K22.70 Barrett's esophagus without dysplasia; D75.89 Other specified diseases of blood and blood-forming organs; E78.5 Hyperlipidemia, unspecified; K31.9 Disease of stomach and duodenum, unspecified; K63.5 Polyp of colon; Z83.3 Family history of diabetes mellitus; Z82.49 Family history of ischemic heart disease and other diseases of the circulatory system; Z68.26 Body mass index [BMI] 26.0-26.9, adult; Z79.899 Other long term (current) drug therapy; Z86.73 Personal history of transient ischemic attack (TIA), and cerebral infarction without residual deficits; Z99.2 Dependence on renal dialysis
CPT/HCPCS: 36430; 82271; 83036; 83735; 84439; 84443; 86850; 86900; 86901; 86920; 87081; 87340; 88305; 88312; 88313; 93005; 93970; 99291; C9113; J0131; J2405; J2597; J2704; J3490; J7030; J7050; P9016

== ENCOUNTER 2019-03-25 18:30 | Emergency (ER) | payer MEDICARE, OTHER ==
[~2019-03-25] VITALS: Ht 182.9 cm; Wt 87.5 kg
[~2019-03-25 18:30] MED LIST changes: +ACET-2247 PO; -ASPI-556 PO; +BISA10SU11 PR; -CALC667C PO; -CARV12.580 PO; +DSS100 PO; +EPOE10008 SQ; -FAMO20 PO; -FOLI0.8T2 PO; +FOLI1CAP16 PO; +HYDR-4061 PO; +INSU100V SQ; -LOSA25TA44 PO; -NIFE30TA5 PO; +NIFE60TA71 PO; +ONDA-104 PO; +PANT40TA PO; +SEVE800 PO
[2019-03-25 19:26] LABS: GLUCOSE,POINT OF CARE 85 MG/DL (70-110)
[2019-03-25 19:39] LABS: BASOPHILS % (AUTO) 0.4 % (0.0-2.0); EOSINOPHILS % (AUTO) 0.5 % (1.0-6.0); HEMATOCRIT 25.7 % (41-53); HEMOGLOBIN 8.5 g/dL (13.5-17.5); LYMPHOCYTES # (AUTO) 0.4 K/uL (1.0-4.8); LYMPHOCYTES % (AUTO) 5.8 % (22.0-44.0); MEAN CORPUSCULAR HEMOGLOBIN 29.5 pg (26.0-34.0); MEAN CORPUSCULAR HGB CONC 33.3 G/dL (31.0-37.0); MEAN CORPUSCULAR VOLUME 89 fL (80-100); MONOCYTES # (AUTO) 0.5 K/uL (0.1-1.0); MONOCYTES % (AUTO) 7.7 % (2.0-9.0); NEUTROPHILS # (AUTO) 5.2 K/uL (1.8-7.7); PLATELET COUNT (AUTO) 205 K/uL (150-450); RED BLOOD CELL COUNT(AUTO) 2.89 MIL/uL (4.50-5.90); RED CELL DISTRIBUTION WIDTH 16.3 % (11.5-14.5)
[2019-03-25 19:45] LABS: NEUTROPHILS % (AUTO) 85.6 % (40.0-70.0)
[2019-03-25 20:10] LABS: INR 1.1 (0.9-1.1); PROTHROMBIN TIME 11.6 SEC (9.4-11.6)
[2019-03-25 20:23] LABS: CALCIUM, TOTAL 8.3 mg/dL (8.8-10.5); CREATININE 7.23 mg/dL (0.60-1.30); POTASSIUM 5.2 mmol/L (3.5-5.1)
[2019-03-25 20:32] LABS: ALBUMIN 1.7 g/dL (3.4-5.0); BILIRUBIN,TOTAL 0.4 mg/dL (0.1-1.0)
[2019-03-25 21:29] VITALS: BP 120/67
== END 2019-03-25 22:28 | disposition home or self-care (01) ==
LOC: EDUNIT# 18:30 → EMS 18:32
DX: I13.11 Hypertensive heart and chronic kidney disease without heart failure, with stage 5 chronic kidney disease, or end stage renal disease (principal); D64.9 Anemia, unspecified; R19.00 Intra-abdominal and pelvic swelling, mass and lump, unspecified site; N18.6 End stage renal disease; F17.210 Nicotine dependence, cigarettes, uncomplicated; I50.9 Heart failure, unspecified; E11.9 Type 2 diabetes mellitus without complications; Z94.0 Kidney transplant status; Z79.4 Long term (current) use of insulin; Z79.899 Other long term (current) drug therapy